=== PATIENT | female | born 1930 | race Caucasian/White ===

== ENCOUNTER → 2016-10-24 | Outpatient (CLI) | payer OTHER ==
[~2016-10-24] MED LIST: ASPIR-TRIN325 M1 PO; AVAPRO150 MG PO; BACTRIM,SEPT1 TABLET PO; CELEBREX200 MG PO; CYANOCOBALAM1000 MCG PO; Ecotrin PO; Feosol PO; KEFLEX500 MG PO; LASIX40 MG PO; MEPILEX BORDER1 EACH TP; SENOKOT S,PE1 TABLET PO; SSD25GM TP; TYLENOL REGULA325 MG PO; VIACTIV CALC1 TABLET PO; VITAMIN D2000 INTUN PO; Vicodin,Lortab 5/500 PO
== END | disposition home or self-care (01) ==
LOC: NUC 09:44
DX: T84.030A Mechanical loosening of internal right hip prosthetic joint, initial encounter (principal); Y79.2 Prosthetic and other implants, materials and accessory orthopedic devices associated with adverse incidents; M41.85 Other forms of scoliosis, thoracolumbar region; R93.7 Abnormal findings on diagnostic imaging of other parts of musculoskeletal system; Z96.643 Presence of artificial hip joint, bilateral; Z96.651 Presence of right artificial knee joint
CPT/HCPCS: 78315; A9503